=== PATIENT | male | born 1955 | race Two or more races ===

== ENCOUNTER 2016-08-09 12:26 | Emergency (ER) | payer MEDICAID ==
[~2016-08-09] VITALS: Ht 167.6 cm; Wt 79.4 kg
[2016-08-09 12:26] VITALS: BP 162/95
[~2016-08-09 12:26] MED LIST: NITR0.4T6 SL
== END 2016-08-09 13:17 | disposition home or self-care (01) ==
LOC: ER 12:31
DX: M54.5 Low back pain (principal); I10 Essential (primary) hypertension; E11.9 Type 2 diabetes mellitus without complications; F17.200 Nicotine dependence, unspecified, uncomplicated
CPT/HCPCS: 99284; A4606; Z7610